=== PATIENT | female | born 1995 | race Caucasian/White ===

== ENCOUNTER 2016-07-11 13:30 | Emergency (ER) | payer OTHER, BC ==
[~2016-07-11 13:30] MED LIST: PREN1CAP7 PO
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
[2016-07-11 15:59] VITALS: BP 122/79; PULSE 86
== END 2016-07-11 17:30 | disposition home or self-care (01) ==
LOC: HOBED 13:30
DX: O26.892 Other specified pregnancy related conditions, second trimester (principal); R10.9 Unspecified abdominal pain; V49.49XA Driver injured in collision with other motor vehicles in traffic accident, initial encounter; Y92.411 Interstate highway as the place of occurrence of the external cause
CPT/HCPCS: 76816; 76819

== ENCOUNTER 2016-10-07 11:52 | Emergency (ER) | payer BC, OTHER ==
[2016-10-07 13:50] VITALS: BP 125/75; PULSE 77; RESP 18; TEMP 98
--- NOTE | 2016-10-07 14:43 | PD ---
HPI Chief Complaint lost mucus plug hives on arm Date Seen: Oct 07, 2016 Travel History International Travel<30 Days: No Contact w/Intl Traveler<30Days: No Known Affected Area: No History of Present Illness HPI 20 yo @ 40 weeks. care with [facility]. Uncomplicated . Patient states she noted some mucus this morning. Denies contractions, VB. +FM. She also noted hives on her left arm and cheek. She denies eating anything this am. Denies any contact with lotion, detergent. No SOB, CP, N/V. Otherwise asymptomatic. History Past Medical History Medical History: Denies Significant Hx Past Surgical History Surgical History: No Previous Surgery Family History Family History: Negative Social History Alcohol Use: No Tobacco Use: No Substance Abuse: No Allergies-Medications (Allergen,Severity, Reaction): Coded Allergies: No Known Allergies (Unverified , 10/05/16) Home Meds No Active Prescriptions or Reported Meds Review of Systems General / Constitutional: No: Fever, Chills Eyes: No: Blurred Vision, Visual changes HENT: No: Headaches, Lightheadedness Cardiovascular: No: Chest Pain or Discomfort, Palpitations Respiratory: No: Cough, Short of Breath, Wheezing Gastrointestinal: No: Nausea, Vomiting, Diarrhea, Abdominal Pain, Loss of Appetite Genitourinary: Discharge (mucus ), No: Urgency, Frequency, Dysuria, Pelvic Pain, Vaginal Bleeding Musculoskeletal: No: Limited ROM, Weakness, Cramping, Edema Skin: Lesions (hives on arm and cheek) Neurologic: No: Weakness, Syncope Hematologic/Lymphatic: No Easy Bruising, No Lymph Node Enlargement Physical Exam Vital Signs Date Time Temp Pulse Resp B/P Pulse Ox O2 Delivery O2 Flow Rate FiO2 10/07/16 13:50 98.0 77 18 125/75 Narrative GENERAL: Well-nourished, well-developed patient. SKIN: Warm and dry. Red welts on left arm and 3 on face HEAD: Normocephalic and atraumatic. EYES: No scleral icterus. No injection or drainage. ENT: No nasal drainage noted. Mucous membranes pink. Airway patent. NECK: Supple, trachea midline. No JVD. CARDIOVASCULAR: Regular rate RESPIRATORY: No accessory muscle use. ABDOMEN/GI: Abdomen soft, non-tender, no rebound, no guarding Gravid GENT: AmniSure NEG TOCO Uterine Contractions: [-] FHT's: Category: I Baseline: 120 Reactive: +accelerations Variability:mod Decels: [-] EXTREMITIES: No cyanosis or edema. No lesions NEUROLOGICAL: Awake and alert. Motor and sensory grossly within normal limits. Normal speech. Data Data Vital Signs Reviewed: Yes MDM Interpretation(s) AmniSure NEG Narrative Course / MDM 40 weeks No labor/contractions AmniSure NEG CAT I FHT A few hives of unknown origin. No associated symptoms Plan D/c home Labor precautions Hives stable, no associated symptoms. Precautions for return to ER if progress or respiratory symptoms Trial of Benadryl Has KASIA in 2 days Diagnosis Diagnosis: Primary Impression: Amniotic cavity/membrane problem suspected but not found Additional Impressions: 40 weeks gestation of Hives Disposition: 01 DISCHARGE HOME Scripts No Active Prescriptions or Reported Meds Patient Instructions: General Instructions, Early Labor Signs (ED), Having Your Baby: The Labor Process (GEN), Movement (ED), at 39 to 40 Weeks (ED) Departure Forms: Tests/Procedures Onelia Smith MD Oct 07, 2016 14:43
== END 2016-10-07 14:10 | disposition home or self-care (01) ==
LOC: HOBED 11:52
DX: O26.93 Pregnancy related conditions, unspecified, third trimester (principal); N89.8 Other specified noninflammatory disorders of vagina; L50.9 Urticaria, unspecified; Z3A.40 40 weeks gestation of pregnancy
CPT/HCPCS: 59025; 84112

== ENCOUNTER 2016-10-09 22:29 | Emergency (ER) | payer BC, OTHER ==
--- NOTE | 2016-10-09 23:27 | PD ---
HPI Chief Complaint contractions Date Seen: Oct 09, 2016 Travel History International Travel<30 Days: No Contact w/Intl Traveler<30Days: No History of Present Illness HPI 20 yo @ 40w3d. care with [facility]. Patient presents with c/o contractions about every 5min. She was seen in the office last week and her SVE was 2cm. She denies any VB, LOF. +FM. She was seen in the [facility] a few days ago and had some hives on her arm and face. No further symptoms and hives resolved. History Past Medical History Medical History: Denies Significant Hx Obstetric History Obstetric History Past Surgical History Surgical History: No Previous Surgery Family History Family History: Negative Social History Alcohol Use: No Tobacco Use: No Substance Abuse: No Allergies-Medications (Allergen,Severity, Reaction): Coded Allergies: No Known Allergies (Unverified , 10/05/16) Home Meds No Active Prescriptions or Reported Meds Review of Systems General / Constitutional: No: Fever, Chills HENT: No: Headaches, Lightheadedness Cardiovascular: No: Chest Pain or Discomfort, Palpitations Respiratory: No: Cough, Short of Breath Gastrointestinal: Abdominal Pain (contractions), No: Nausea, Vomiting, Diarrhea Genitourinary: No: Urgency, Frequency, Discharge, Vaginal Bleeding Musculoskeletal: No: Limited ROM Skin: No Rash (resolved hives), Itching, Lesions (resolved hives) Neurologic: No: Dizziness, Focal Abnormalities Physical Exam Narrative GENERAL: Well-nourished, well-developed patient. NAD SKIN: Warm and dry. HEAD: Normocephalic and atraumatic. EYES: No scleral icterus. No injection or drainage. ENT: No nasal drainage noted. Mucous membranes pink. Airway patent. NECK: , trachea midline. No JVD. CARDIOVASCULAR: Regular rate RESPIRATORY: No accessory muscle use. ABDOMEN/GI: Abdomen soft, non-tender, no rebound, no guarding Gravid GENITOURINARY: External Genitalia: intact and normal in appearance BUS glands: [-] SVE: 2/75/-3 intact, vtx TOCO: irregular UC q 5-7 min FHT's: Category: I EXTREMITIES: No cyanosis or edema. BACK: Nontender without obvious deformity. NEUROLOGICAL: Awake and alert. Motor and sensory grossly within normal limits. Normal gait. Normal speech. MDM Narrative Course / MDM 40 weeks CAT I FHT No cervical change from prior exams False labor Plan d/c home Labor precautions reviewed She has KASIA tomorrow Vistaril for rest offered Diagnosis Diagnosis: Primary Impression: False labor after 37 weeks of gestation without delivery Additional Impression: 40 weeks gestation of Disposition: 01 DISCHARGE HOME Condition: Good Scripts No Active Prescriptions or Reported Meds Onelia Smith MD Oct 09, 2016 23:27
[2016-10-10] MEDS ORDERED: PRENTAB44 (21:09)
== END 2016-10-10 00:10 | disposition home or self-care (01) ==
LOC: HOBED 22:29
DX: O47.1 False labor at or after 37 completed weeks of gestation (principal); Z3A.40 40 weeks gestation of pregnancy
CPT/HCPCS: 59025

== ENCOUNTER 2016-10-10 20:42 | Inpatient (IN) | payer BC ==
[~2016-10-10] VITALS: Ht 157.5 cm; Wt 69.9 kg
[2016-10-10] MEDS ORDERED: PRENTAB44 (21:09)
--- NOTE | 2016-10-10 21:11 | PD ---
HPI Chief Complaint Contractions all day Date Seen: Oct 10, 2016 Time Seen: 21:07 Travel History International Travel<30 Days: No Contact w/Intl Traveler<30Days: No Known Affected Area: No History of Present Illness HPI 20-year-old who is at 40 weeks and 3 days comes in tonight complaining of contractions. Patient was seen yesterday and the day before with contractions, cervix was 3 cm in the office this morning. Patient states the contractions have been present all day with worsening in the past 2-3 hours. Denies vaginal bleeding or vaginal discharge. She is group B strep negative Para: 0 : 2 History Past Medical History Medical History: Denies Significant Hx Past Surgical History Surgical History: No Previous Surgery Family History Family History: Negative Social History Alcohol Use: No Tobacco Use: No Substance Abuse: No Allergies-Medications (Allergen,Severity, Reaction): Coded Allergies: No Known Allergies (Unverified , 10/10/16) Home Meds No Active Prescriptions or Reported Meds Review of Systems Except as stated in HPI: all other systems reviewed are Neg Physical Exam Narrative GENERAL: Well-nourished, well-developed patient. SKIN: Warm and dry. HEAD: Normocephalic and atraumatic. EYES: No scleral icterus. No injection or drainage. ENT: No nasal drainage noted. Mucous membranes pink. Airway patent. NECK: Supple, trachea midline. No JVD. CARDIOVASCULAR: Regular rate and rhythm without murmurs, gallops, or rubs. RESPIRATORY: Breath sounds equal bilaterally. No accessory muscle use. BREASTS: Bilateral exam showed no masses , no retractions, no nipple discharge. ABDOMEN/GI: Abdomen soft, non-tender, bowel sounds present, no rebound, no guarding Gravid to [38-] weeks size EFW 7-1/2 Fundal Height: [-] GENITOURINARY: External Genitalia: intact and normal in appearance BUS glands: [-Normal] Cervix: [Mid position-] Dilatation: [-3-4] Effacement: [80-] Station: [-2-] Presentation: [Vertex-] Membranes: [intact] Uterine Contractions: [-Every 5] FHT's: Category: [-1] Baseline: [-140] Reactive: [Moderate-] Variability: [Moderate-] Decels: [-Absent] EXTREMITIES: No cyanosis or edema. BACK: Nontender without obvious deformity. No CVA tenderness. NEUROLOGICAL: Awake and alert. Motor and sensory grossly within normal limits. Five out of 5 muscle strength in all muscle groups. Normal speech. Data Data Vital Signs Reviewed: Yes MDM Medical Record Reviewed: Yes Plan 20-year-old who is at 40-41 weeks gestation who is in early labor Group B strep negative Will admit to labor delivery Diagnosis Diagnosis: Primary Impression: 40 weeks gestation of Additional Impressions: Intact amniotic membranes Intact amniotic membranes during in third trimester Irregular uterine contractions Scripts No Active Prescriptions or Reported Meds Maria Knox MD Oct 10, 2016 21:11
[2016-10-10] MEDS ORDERED: LACTATED RINGER'S 1000 ML INJ 1,000 ML IV PRN (21:21)
[2016-10-10] MEDS ORDERED: LIDOCAINE HCL 1% 50 ML VIAL I-DERMAL PRN (21:30)
[2016-10-10] MEDS ORDERED: ONDANSETRON HCL 4 MG/2 ML VIAL IV PRN (21:30)
[2016-10-10] MEDS ORDERED: OXYTOCIN 30 UNITS-500ML PREMIX 500 ML IV ONE (21:30)
[2016-10-10] MEDS ORDERED: CITRIC ACID-SODIUM CITRATE LIQ 30 ML UDC PO SCH (21:30)
[2016-10-10] MEDS ORDERED: LIDOCAINE HCL 1% 50 ML VIAL INFIL PRN (21:30)
[2016-10-10] MEDS ORDERED: SODIUM CHLORID 0.9% 500 ML INJ 500 ML IV PRN (21:30)
[2016-10-10] MEDS ORDERED: MINERAL OIL 10 ML VIAL TOPICAL PRN (21:30)
[2016-10-10] MEDS ORDERED: SODIUM CHLOR 0.9% 1000 ML INJ 1,000 ML IV PRN (21:41)
[2016-10-10] MEDS: LACTATED RINGER'S 1000 ML INJ 1,000 ML IV SCH (21:45)
[2016-10-10 22:31] LABS: BACTERIA, URINE RARE /hpf; BLOOD, URINE NEG (NEG); COMMENT (UR) CULT NOT INDICATED; CULTURE IF INDICATED CULT NOT INDICATED; GLUCOSE,URINE NEG (NEG); KETONE, URINE NEG (NEG); NITRITE,URINE NEG (NEG); PH, URINE 6.5 (5.0-8.5); SQUAMOUS EPITHELIAL CELL URINE <1 /hpf (0-5); URINE COLOR YELLOW (YELLW/STRAW)
[2016-10-10 22:34] LABS: AUTOMATED NEUTROPHIL # 12.1 TH/MM3 (1.8-7.7); BASOPHIL % 0.2 % (0.0-2.0); EOSINOPHIL # 0.2 TH/MM3 (0-0.4); EOSINOPHIL % 1.6 % (0.0-4.0); HEMO FLAGS DIFF FINAL; LYMPH % 8.6 % (9.0-44.0); LYMPHOCYTE # 1.2 TH/MM3 (1.0-4.8); MEAN CELL VOLUME 92.9 FL (80.0-100.0); MEAN CORPUSCULAR HEMOGLOBIN 31.1 PG (27.0-34.0); MEAN CORPUSCULAR HGB CONC 33.5 % (32.0-36.0); MONO % 4.7 % (0.0-8.0); NEUT % 84.9 % (16.0-70.0); PLATELET COUNT 232 TH/MM3 (150-450); RED BLOOD COUNT 4.09 MIL/MM3 (4.00-5.30); RED CELL DISTRIBUTION WIDTH 12.9 % (11.6-17.2); WHITE BLOOD COUNT 14.2 TH/MM3 (4.0-11.0)
[2016-10-10 23:28] VITALS: RESP 18
--- NOTE | 2016-10-10 23:39 | HHI.HP ---
History & Physical H&P HPI HPI Chief Complaint Contractions all day Date Seen: Oct 10, 2016 Time Seen: 21:07 Travel History International Travel<30 Days: No Contact w/Intl Traveler<30Days: No Known Affected Area: No History of Present Illness HPI 20-year-old who is at 40 weeks and 3 days comes in tonight complaining of contractions. Patient was seen yesterday and the day before with contractions, cervix was 3 cm in the office this morning. Patient states the contractions have been present all day with worsening in the past 2-3 hours. Denies vaginal bleeding or vaginal discharge. She is group B strep negative Para: 0 : 2 History (Limited) History Past Medical History Medical History: Denies Significant Hx Past Surgical History Surgical History: No Previous Surgery Family History Family History: Negative Social History Alcohol Use: No Tobacco Use: No Substance Abuse: No Allergies-Medications Allergies-Medications (Allergen,Severity, Reaction): Coded Allergies: No Known Allergies (Unverified , 10/10/16) Home Meds No Active Prescriptions or Reported Meds ROS Review of Systems Except as stated in HPI: all other systems reviewed are Neg Physical Exam Physical Exam Narrative GENERAL: Well-nourished, well-developed patient. SKIN: Warm and dry. HEAD: Normocephalic and atraumatic. EYES: No scleral icterus. No injection or drainage. ENT: No nasal drainage noted. Mucous membranes pink. Airway patent. NECK: Supple, trachea midline. No JVD. CARDIOVASCULAR: Regular rate and rhythm without murmurs, gallops, or rubs. RESPIRATORY: Breath sounds equal bilaterally. No accessory muscle use. BREASTS: Bilateral exam showed no masses , no retractions, no nipple discharge. ABDOMEN/GI: Abdomen soft, non-tender, bowel sounds present, no rebound, no guarding Gravid to [38-] weeks size EFW 7-1/2 Fundal Height: [-] GENITOURINARY: External Genitalia: intact and normal in appearance BUS glands: [-Normal] Cervix: [Mid position-] Dilatation: [-3-4] Effacement: [80-] Station: [-2-] Presentation: [Vertex-] Membranes: [intact] Uterine Contractions: [-Every 5] FHT's: Category: [-1] Baseline: [-140] Reactive: [Moderate-] Variability: [Moderate-] Decels: [-Absent] EXTREMITIES: No cyanosis or edema. BACK: Nontender without obvious deformity. No CVA tenderness. NEUROLOGICAL: Awake and alert. Motor and sensory grossly within normal limits. Five out of 5 muscle strength in all muscle groups. Normal speech. Data Data Data Vital Signs Reviewed: Yes MDM MDM Medical Record Reviewed: Yes Plan 20-year-old who is at 40-41 weeks gestation who is in early labor Group B strep negative Will admit to labor delivery Diagnosis Diagnosis: Primary Impression: 40 weeks gestation of Additional Impressions: Intact amniotic membranes Intact amniotic membranes during in third trimester Irregular uterine contractions Maria Knox MD Oct 10, 2016 23:39
[2016-10-11] VITALS (136 sets, daily range): BP systolic 117–166; BP diastolic 58–103; PULSE 44–141; RESP 16–18; TEMP 97.5–98.8
[2016-10-11] MEDS: LACTATED RINGER'S 1000 ML INJ 1,000 ML IV SCH (03:05)
[2016-10-11] MEDS ORDERED: OXYTOCIN 30 UNITS-500ML PREMIX 500 ML IV SCH ×3 (08:00→10:45)
--- NOTE | 2016-10-11 08:32 | PD.LABORPN ---
Subjective Subjective 20YO at 40/5 weeks 6-7 cm/80% and -2 station with AROM at 0820. Category 1 tracing. Objective Vital Signs Vital Signs Date Time Temp Pulse Resp B/P Pulse Ox O2 Delivery O2 Flow Rate FiO2 10/11/16 07:25 93 18/17 07:20 86 18/17 07:15 82 18/17 07:15 98.1 10/11/16 07:13 92 128/80 1817 07:10 91 10/11/16 07:05 100 17 06:55 99 10/11/16 06:50 78 18/17 06:45 83 10/11/17 06:40 73 10/11/17 06:35 69 10/11/17 06:30 64 10/11/ 06:25 99 10/11/17 06:20 69 10/11/17 06:19 18 18/ 06:15 68 10/11/ 06:10 68 10/11/16 06:05 72 10/11/16 06:00 92 10/11/17 05:40 83 18/17 05:35 91 10/11/17 05:30 92 10/11/17 05:25 76 /18/17 05:20 67 /18/17 05:15 67 /18/17 05:10 69 18/17 05:05 73 18/17 05:00 66 18/17 04:55 77 /18/17 04:50 70 /18/17 04:45 80 /18/17 04:40 81 18/17 04:35 70 /18/17 04:30 76 /18/17 04:25 68 /18/17 04:20 71 /18/17 04:15 18 /18/17 04:15 69 /18/17 04:10 70 /18/17 04:05 80 /18/17 04:00 80 7/18/17 03:55 76 7/18/17 03:50 78 /18/17 03:45 71 7/18/17 03:40 75 /18/17 03:35 100 /18/17 03:30 106 /18/17 03:25 84 7/18/17 03:20 83 10/11/16 03:15 81 10/11/16 03:10 82 10/11/16 03:00 72 10/11/16 02:58 98.4 79 18 141/85 10/11/16 02:55 73 10/11/16 02:50 89 10/11/16 02:45 67 10/11/16 01:20 18 10/11/16 00:30 97.5 10/11/16 00:27 18 Objective Pelvic Exam: Cervix: [open] Dilatation: [6-7] Effacement: [80] Station: [-1] Presentation: [vertex] Membranes: [AROM at 0820 hours with clear fluid] Uterine Contractions: [2-3 mins] FHT's: Category: [1] Baseline: [140s] Reactive: [yes] Variability: [moderate] Decels: [0] Assessment/Plan Assessment and Plan 20YO at 40/5 weeks is 6-7 cm/80% and -2 station on cervical exam with AROM at 0820. Reassuring status with reactive category 1 tracing, baseline in 140s, no decels. - Expectant management - Epidural/pain control PRN - Low dose oxytocin Cal Desir MD R1 Oct 11, 2016 08:32
[2016-10-11 09:50] LABS: RAPID PLASMA REAGIN SCREEN NON-REACTIVE (NON-REACTVE)
[2016-10-11] MEDS ORDERED: ePHEDrine/NS 25 MG/5 ML SYR ONE (10:45)
[2016-10-11] MEDS ORDERED: fentaNYL 2MCG-BUPIV 0.125% INJ 100 ML ONE (10:45)
--- NOTE | 2016-10-11 10:55 | PD.LABORPN ---
Subjective Subjective 20 YO at 40/5 weeks at 7/90/0 and vertex with labor progressing. A few isolated variable decels but have resolved with repositioning with reassuring FHT at this time. IV Fentanyl started. Pt with emesisx1. Objective Vital Signs Vital Signs Date Time Temp Pulse Resp B/P Pulse Ox O2 Delivery O2 Flow Rate FiO2 10/11/16 10:10 85 18/17 10:05 83 18/17 10:02 86 120/62 17 10:00 87 18/17 09:40 100 18/17 09:39 98.7 10/11/ 09:35 93 18/17 09:30 89 141/83 10/11/17 09:30 79 10/11/ 09:25 97 10/11/ 09:20 95 18/17 09:15 84 18/ 09:10 44 10/11/ 09:05 104 10/11/ 09:00 93 130/88 10/11/16 09:00 94 10/11/16 08:55 104 18/17 08:50 96 18/17 08:45 102 18/17 08:40 102 18/17 08:36 98 135/89 18/17 08:35 103 18/17 08:30 103 18/17 08:25 109 18/17 08:20 112 18/17 08:15 118 18/17 08:10 84 18/ 08:05 76 10/11/ 08:00 72 18/ 07:55 74 18/17 07:50 73 18/17 07:45 79 18/17 07:40 77 18/17 07:35 84 18/17 07:30 91 18/17 07:25 93 18/17 07:20 86 18/17 07:15 82 18/17 07:15 98.1 18/17 07:13 92 128/80 18/17 07:10 91 18/17 07:05 100 18/17 06:55 99 18/17 06:50 78 18/17 06:45 83 7/18/17 06:40 73 7/18 06:35 69 1817 06:30 64 1817 06:25 99 10/11/16 06:20 69 17 06:19 18 10/11/16 06:15 68 1817 06:10 68 10/11/16 06:05 72 10/11/16 06:00 92 10/11/16 05:40 83 10/11/16 05:35 91 10/11/16 05:30 92 10/11/16 05:25 76 10/11/16 05:20 67 10/11/16 05:15 67 10/11/16 05:10 69 10/11/16 05:05 73 10/11/16 05:00 66 10/11/16 04:55 77 10/11/16 04:50 70 10/11/16 04:45 80 10/11/16 04:40 81 10/11/16 04:35 70 10/11/16 04:30 76 10/11/16 04:25 68 10/11/16 04:20 71 17 04:15 18 10/11/16 04:15 69 10/11/16 04:10 70 10/11/16 04:05 80 10/11/16 04:00 80 10/11/16 03:55 76 10/11/16 03:50 78 18 03:45 71 1817 03:40 75 1817 03:35 100 10/11/16 03:30 106 10/11/16 03:25 84 10/11/16 03:20 83 10/11/16 03:15 81 10/11/16 03:10 82 10/11/16 03:00 72 10/11/16 02:58 98.4 79 18 141/85 10/11/16 02:55 73 10/11/16 02:50 89 10/11/16 02:45 67 Objective Pelvic Exam: Cervix: open Dilatation: 7 Effacement: 90 Station: 0 Presentation: vertex Membranes: ruptured Uterine Contractions: 2-3 min--difficult to assess with pt on her side; IUPC placed FHT's: Category: 1 Baseline: 130 Reactive: yes Variability: moderate Decels: a few isolated variable decels noted, but resolved upon repositioning Assessment/Plan Assessment and Plan 20 YO at 40/5 weeks at 7/90/0 and vertex with labor progressing. A few isolated variable decels but have resolved with repositioning with reassuring FHT - Increased pitocin to 2-2-30 at 1035 hours - Inserted IUPC Cal Desir MD R1 Oct 11, 2016 10:55
--- NOTE | 2016-10-11 12:41 | PD.LABORPN ---
Subjective Subjective Patient comfortable with epidural, feeling pressure Objective Vital Signs Vital Signs Date Time Temp Pulse Resp B/P Pulse Ox O2 Delivery O2 Flow Rate FiO2 10/11/16 12:31 111 153/88 718/17 12:10 80 133/73 718/17 12:05 91 142/83 718/17 12:00 74 130/68 7/18/17 11:55 78 131/65 7/18/17 11:50 91 145/82 718/17 11:45 78 131/73 718/17 11:40 87 137/75 718/17 11:35 100 133/80 718/17 11:30 96 18/17 11:30 97 132/79 7/18/17 11:25 95 18/17 11:25 92 134/78 718/17 11:20 85 135/75 18/17 11:20 99 18/17 11:15 91 18/17 11:15 79 127/71 718/17 11:10 138/78 18/17 11:10 93 18/17 11:10 91 18/17 11:05 88 18/17 11:05 98 18/17 11:05 145/83 7/18/17 11:00 97 160/96 18/17 10:55 101 /18/17 10:51 109 141/82 7/18/17 10:50 109 /18/17 10:50 104 153/93 7/18/17 10:30 93 145/93 7/18/17 10:30 85 7/18/17 10:25 93 7/18/17 10:20 86 7/18/17 10:15 83 7/18/17 10:10 85 7/18/17 10:05 83 7/18/17 10:02 86 120/62 7/18/17 10:00 87 7/18/17 09:40 100 7/18/17 09:39 98.7 7/18/17 09:35 93 7/18/17 09:30 89 141/83 7/18/17 09:30 79 7/18/17 09:25 97 7/18/17 09:20 95 18/17 09:15 84 7/18/17 09:10 44 7/18/17 09:05 104 7/18/17 09:00 93 130/88 7/18/17 09:00 94 7/18/17 08:55 104 7/18/17 08:50 96 7/18/17 08:45 102 7/18/17 08:40 102 7/18/17 08:36 98 135/89 7/18/17 08:35 103 7/18/17 08:30 103 7/18/17 08:25 109 7/18/17 08:20 112 7/18/17 08:15 118 7/18/17 08:10 84 7/18/17 08:05 76 7/18/17 08:00 72 7/18/17 07:55 74 7/18/17 07:50 73 7/18/17 07:45 79 7/18/17 07:40 77 7/18/17 07:35 84 7/18/17 07:30 91 7/18/17 07:25 93 7/18/17 07:20 86 7/18/17 07:15 82 7/18/17 07:15 98.1 7/18/17 07:13 92 128/80 7/18/17 07:10 91 7/18/17 07:05 100 7/18/17 06:55 99 7/18/17 06:50 78 7/18/17 06:45 83 7/18/17 06:40 73 7/18/17 06:35 69 7/18/17 06:30 64 7/18/17 06:25 99 7/18/17 06:20 69 7/18/17 06:19 18 7/18/17 06:15 68 7/18/17 06:10 68 7/18/17 06:05 72 7/18/17 06:00 92 7/18/17 05:40 83 7/18/17 05:35 91 7/18/17 05:30 92 7/18/17 05:25 76 7/18/17 05:20 67 7/18/17 05:15 67 7/18/17 05:10 69 7/18/17 05:05 73 7/18/17 05:00 66 7/18/17 04:55 77 7/18/17 04:50 70 7/18/17 04:45 80 7/18/17 04:40 81 Objective Pelvic Exam: Dilatation: complete Effacement: complete Station:+1 Presentation:cephalic Membranes: intact Uterine Contractions: q 1-2 min FHT's: Category: [1] Baseline: [120s] Variability: [present] Decels: no repetitive decels Assessment/Plan Assessment and Plan A/P: 20y/o 1. IUP at 40.5 2. labor: continue to augment, anticipate 3. GBS neg 4. FHR overall reassuring, continue EFM Madeleine Erwin MD Oct 11, 2016 12:41
[2016-10-11] MEDS ORDERED: MISOPROSTOL 200 MCG TAB ONE (12:47)
[2016-10-11] MEDS ORDERED: IBUPROFEN 600 MG TAB PO PRN (14:30)
[2016-10-11] MEDS ORDERED: SODIUM CHLORIDE 0.9% FLUSH 10 ML FLUSH IV FLUSH PRN (14:30)
[2016-10-11] MEDS ORDERED: WITCH HAZEL 50%/GLYCERIN 12.5% 40 PAD JAR TOPICAL PRN (14:30)
[2016-10-11] MEDS ORDERED: ALUMINUM/MAGNESIUM/SIMETH 30 ML CUP PO PRN (14:30)
[2016-10-11] MEDS ORDERED: ZOLPIDEM TARTRATE 5 MG TAB PO PRN (14:30)
[2016-10-11] MEDS ORDERED: BENZOCAINE 20% TOPICAL SPRAY 60 ML CAN TOPICAL PRN (14:30)
[2016-10-11] MEDS ORDERED: ONDANSETRON ODT 4 MG TAB PO PRN (14:30)
[2016-10-11] MEDS ORDERED: DOCUSATE SODIUM 50 MG/SENNA 8.6 MG TAB PO PRN (14:30)
--- NOTE | 2016-10-11 14:34 | PD.OB.DELI ---
Delivery Date: Oct 11, 2016 Anesthesia: Epidural Episiotomy: None Vaginal Delivery: Normal Presentation: Occiput anterior, Vertex Nuchal Cord: x1, Other (nuchal and body) Delayed cord clamping (45 sec): Yes : Male One Minute : 8 Five Minute : 9 Weight: 3030 grams Placenta: Spontaneous delivery, Intact Laceration: Vaginal laceration, 1 deg (perineal 1st degree), 2 deg (vaginal 2nd degree) Repair: Chromic interrupted (3 for vaginal laceration), Chromic running (2) Additional Information 20 YO delivered via at 40/5 weeks following AROM at 0820 hours augmented by Pitocin titrated to 4. Nuchal cord plus cord over bodyx1. Mother pushed well with coaching and baby was delivered crying vigorously. After delayed clamping, cord was cut by family. Placenta delivered within 10 minutes and was intact. Dr Desir delivered the baby supervised by Dr Erwin. Dr Erwin performed laceration repair under local lidocaine anesthesia. Cytotec was administered following delivery. Cal Desir MD R1 Oct 11, 2016 14:34
--- NOTE | 2016-10-11 14:50 | PD.LABORPN ---
Subjective Subjective Attending delivery note Came to room to assess patient with SVE C/C/+1> madanetn labored down with reassuring FHR. Subsequently commenced spontaneous maternal expulsive effors with excellent descent. I was present, scrubbed, and involved in all portions of delivery. The head delivered spontaneously and atraumatically over a well supported perineum; a nuchal cord was reduced and the anterior shoulder delivered atraumatically and spontaneously followed by atraumatic and spontaneous delivery of the remainder of the . Thick meconium was noted with delivery. The was vigorous at delivery and placed on the maternal abdomen. The cord was double clamped and cut after a time delay. The placenta delivered spontaneously and appeared to be intact. Apgars 8/9. A second degree vaginal laceration was noted and repaired by attending with 3-0 chromic after instillation of 1% lidocaine. A superficial R labial laceration and l vaginal wall laceration were repaired. EBL 250cc. and mother are both doing well. Objective Vital Signs Vital Signs Date Time Temp Pulse Resp B/P Pulse Ox O2 Delivery O2 Flow Rate FiO2 10/11/16 14:31 89 118/74 10/11/16 14:30 98.6 10/11/16 14:15 91 137/78 10/11/16 14:00 100 127/75 10/11/16 13:46 119 141/58 10/11/16 13:31 98 166/103 10/11/16 13:15 78 154/88 10/11/16 13:00 89 147/88 10/11/16 12:45 141 141/98 10/11/16 12:31 111 153/88 10/11/16 12:25 92 136/87 10/11/16 12:20 76 136/75 10/11/16 12:15 94 137/82 10/11/16 12:10 80 133/73 10/11/16 12:05 91 142/83 10/11/16 12:00 74 130/68 10/11/16 11:55 78 131/65 10/11/16 11:50 91 145/82 10/11/16 11:45 78 131/73 10/11/16 11:40 87 137/75 10/11/16 11:35 100 133/80 10/11/16 11:30 96 10/11/16 11:30 97 132/79 7/18/17 11:25 95 7/18/17 11:25 92 134/78 7/18/17 11:20 85 135/75 7/18/17 11:20 99 7/18/17 11:15 91 7/18/17 11:15 79 127/71 7/18/17 11:10 138/78 7/18/17 11:10 93 7/18/17 11:10 91 7/18/17 11:05 88 7/18/17 11:05 98 7/18/17 11:05 145/83 7/18/17 11:00 97 160/96 7/18/17 10:55 101 7/18/17 10:51 109 141/82 7/18/17 10:50 109 7/18/17 10:50 104 153/93 7/18/17 10:30 93 145/93 7/18/17 10:30 85 7/18/17 10:25 93 7/18/17 10:20 86 7/18/17 10:15 83 7/18/17 10:10 85 7/18/17 10:05 83 7/18/17 10:02 86 120/62 7/18/17 10:00 87 7/18/17 09:40 100 7/18/17 09:39 98.7 7/18/17 09:35 93 7/18/17 09:30 89 141/83 7/18/17 09:30 79 7/18/17 09:25 97 7/18/17 09:20 95 7/18/17 09:15 84 7/18/17 09:10 44 7/18/17 09:05 104 7/18/17 09:00 93 130/88 7/18/17 09:00 94 7/18/17 08:55 104 7/18/17 08:50 96 7/18/17 08:45 102 7/18/17 08:40 102 7/18/17 08:36 98 135/89 7/18/17 08:35 103 7/18/17 08:30 103 7/18/17 08:25 109 7/18/17 08:20 112 7/18/17 08:15 118 7/18/17 08:10 84 7/18/17 08:05 76 7/18/17 08:00 72 7/18/17 07:55 74 10/11/16 07:50 73 10/11/16 07:45 79 10/11/16 07:40 77 10/11/16 07:35 84 10/11/16 07:30 91 10/11/16 07:25 93 10/11/16 07:20 86 10/11/16 07:15 82 10/11/16 07:15 98.1 10/11/16 07:13 92 128/80 10/11/16 07:10 91 10/11/16 07:05 100 10/11/16 06:55 99 10/11/16 06:50 78 Objective Pelvic Exam: Cervix: [-] Dilatation: [-] Effacement: [-] Station: [-] Presentation: [-] Membranes: [intact or ruptured] Uterine Contractions: [-] FHT's: Category: [-] Baseline: [-] Reactive: [-] Variability: [-] Decels: [-] Madeleine Erwin MD Oct 11, 2016 14:50
[2016-10-11] MEDS ORDERED: MEASLES, MUMPS, RUBELLA VACCINE 0.5 ML VIAL SQ ONE (16:00)
[2016-10-11] MEDS ORDERED: DIPHTH/TETANUS/ACEL PERTUSSIS (BOOSTER) 0.5 ML VIAL/PFS IM ONE (16:00)
[2016-10-11] MEDS ORDERED: MISOPROSTOL 200 MCG TAB RECTAL ONE (16:00)
[2016-10-11] MEDS ORDERED: fentaNYL 2MCG-BUPIV 0.125% 100 ML EPIDURAL SCH (16:30)
[2016-10-11] MEDS ORDERED: NO SYSTEM NARCOTICS PRN (16:30)
[2016-10-11] MEDS ORDERED: DO NOT ADMINISTER ANTICOAGULANTS PRN (16:30)
[2016-10-11] MEDS ORDERED: ePHEDrine/NS 25 MG/5 ML SYR IV PRN (16:30)
[2016-10-11] MEDS: ACETAMINOPHEN 325 MG TAB PO PRN ×2 (17:52→22:55)
[2016-10-11] MEDS ORDERED: SODIUM CHLORIDE 0.9% FLUSH 10 ML FLUSH IV FLUSH SCH (21:00)
[2016-10-12 08:00] VITALS: BP 117/78; PULSE 72; RESP 16; TEMP 97.6
--- NOTE | 2016-10-12 08:18 | HHI.OB ---
Subjective Post Day: 1 Remarks 20 YO delivered via 40/5 weeks and is progressing well on day one. AFVSS. Meeting all goals as appropriate ambulating, PO, pain controlled, voiding and bowel movements, and bleeding less than a period. Exclusively breast-feeding. Patient denies CP, SOB, N/V/D, and DVT pain. Objective Vitals/I&O Vital Signs Date Time Temp Pulse Resp B/P Pulse Ox O2 Delivery O2 Flow Rate FiO2 10/11/16 20:00 98.8 10/11/16 19:30 118/66 10/11/16 19:30 89 18 10/11/16 16:30 98.4 79 16 10/11/16 16:30 117/76 10/11/16 15:30 89 129/80 10/11/16 15:15 89 124/70 10/11/16 15:00 85 136/65 10/11/16 14:45 90 121/70 10/11/16 14:31 89 118/74 10/11/16 14:30 98.6 10/11/16 14:15 91 137/78 10/11/16 14:00 100 127/75 10/11/16 13:46 119 141/58 10/11/16 13:31 98 166/103 10/11/16 13:15 78 154/88 10/11/16 13:00 89 147/88 10/11/16 12:45 141 141/98 10/11/16 12:31 111 153/88 10/11/16 12:25 92 136/87 10/11/16 12:20 76 136/75 10/11/16 12:15 94 137/82 10/11/16 12:10 80 133/73 10/11/16 12:05 91 142/83 10/11/16 12:00 74 130/68 18 11:55 78 131/65 18 11:50 91 145/82 18 11:45 78 131/73 10/11/16 11:40 87 137/75 10/11/16 11:35 100 133/80 10/11/16 11:30 96 10/11/16 11:30 97 132/79 10/11/16 11:25 95 10/11/16 11:25 92 134/78 7/18/17 11:20 85 135/75 7/18/17 11:20 99 7/18/17 11:15 91 7/18/17 11:15 79 127/71 7/18/17 11:10 138/78 7/18/17 11:10 93 7/18/17 11:10 91 718/17 11:05 88 718/17 11:05 98 18/17 11:05 145/83 718/17 11:00 97 160/96 718/17 10:55 101 18/17 10:51 109 141/82 718/17 10:50 109 18/17 10:50 104 153/93 7/18/17 10:30 93 145/93 718/17 10:30 85 718/17 10:25 93 18/17 10:20 86 18/17 10:15 83 718/17 10:10 85 718/17 10:05 83 718/17 10:02 86 120/62 718/17 10:00 87 718/17 09:40 100 7/18/17 09:39 98.7 7/18/17 09:35 93 7/18/17 09:30 89 141/83 718/17 09:30 79 7/18/17 09:25 97 7/18/17 09:20 95 718/17 09:15 84 7/18/17 09:10 44 718/17 09:05 104 718/17 09:00 93 130/88 718/17 09:00 94 18/17 08:55 104 7/18/17 08:50 96 718/17 08:45 102 7/18/17 08:40 102 7/18/17 08:36 98 135/89 7/18/17 08:35 103 7/18/17 08:30 103 7/18/17 08:25 109 7/18/17 08:20 112 7/18/17 08:15 118 7/18/17 08:10 84 Objective Remarks GENERAL: WDWN female lying in bed breast-feeding her baby. CARDIOVASCULAR: RRR without murmur, gallop, or rub. RESPIRATORY: Breath sounds equal bilaterally with no increased work of breathing. No accessory muscle use. ABDOMEN/GI: Abdomen soft, appropriately tender, no guarding or rebound. Fundus: Firm, non-tender at umbilicus. GENITOURINARY: Light to moderate bleeding. EXTREMITIES: No cyanosis or edema, non-tender, without signs of DVT. Medications and IVs Current Medications Medications (Trade) Dose Ordered Sig/Francisco Javier Route Start Time Stop Time Status Last Admin (Lr 1000 ml Inj) 1,000 ml @ 125 mls/hr Q8H IV 10/10/16 21:21 10/11/16 03:05 (fentaNYL INJ) 100 mcg Q1H PRN IV PUSH 10/10/16 21:30 10/11/16 09:53 (Muri-Lube Oil) 10 ml UNSCH PRN TOPICAL 10/10/16 21:30 10/11/16 14:01 (NS Flush) 2 ml BID IV FLUSH 10/11/16 21:00 (NS Flush) 2 ml UNSCH PRN IV FLUSH 10/11/16 14:30 (Tylenol) 650 mg Q4H PRN PO 10/11/16 14:30 10/11/16 22:55 (Motrin) 600 mg Q6H PRN PO 10/11/16 14:30 10/11/16 17:52 (Americaine 20% Top Spr) 1 spray Q4H PRN TOPICAL 10/11/16 14:30 (Tucks Pads) 1 applic QID PRN TOPICAL 10/11/16 14:30 ([place]-Colace) 2 tab Q12H PRN PO 10/11/16 14:30 (Ambien) 5 mg HS PRN PO 10/11/16 14:30 (Mag-Al Plus Susp Liq) 15 ml Q8H PRN PO 10/11/16 14:30 (Zofran Odt) 4 mg Q6H PRN PO 10/11/16 14:30 Miscellaneous Information No systemic narcotics to be given except... UNSCH PRN .XX 10/11/16 16:30 10/12/16 16:29 Miscellaneous Information DO NOT ADMINISTER ANY ANTICOAGUL... UNSCH PRN .XX 10/11/16 16:30 10/12/16 16:29 (ePHEDrine/NS 25 MG/5 ML SYR) 10 mg UNSCH PRN IV 7/18/17 16:30 10/12/16 16:29 Assessment/Plan Assessment and Plan 20-year-old delivered via at 40/5 weeks and is progressing well on PPD 1 - Routine postop care - AFVSS - Motrin PRN pain control - Exclusively breast-feeding - Encourage OOB - Patient considering contraceptive methods - Anticipate discharge 10/[address], MD R1 Oct 12, 2016 08:18
[2016-10-12] MEDS ORDERED: IBUP-232 PO (10:36)
--- NOTE | 2016-10-12 10:36 | HHI.DCPOC ---
Discharge Care Plan Diagnosis: (1) Normal vaginal delivery Report Symptoms to Your Doctor -Temperature above 100.5 degrees -Redness, of incision or excessive or foul smelling drainage -Unusual pain or calf pain -Increased vaginal bleeding -Painful or difficulty urinating -Feelings of extreme sadness or anxiety after 2 weeks Goals to Promote Your Health * To prevent worsening of your condition and complications * To maintain your health at the optimal level Directions to Meet Your Goals Take your medications as prescribed Follow your dietary instruction Follow activity as directed Ensure plenty of rest for recovery Drink fluids for hydration Keep your appointments as scheduled Take your immunizations and boosters as scheduled If your symptoms worsen call your PCP, if no PCP go to Urgent Care Center or Emergency Room Smoking is Dangerous to Your Health. Avoid second hand smoke Call the 24-hour crisis hotline for domestic abuse at Tristian Lopez MD R1 Oct 12, 2016 10:36
== END 2016-10-12 17:09 | disposition home or self-care (01) | DRG 775 ==
LOC: HOBED 20:42 → H2EB 21:18 → H1EA 10-11 16:09
PROVIDERS: ADMIT Obstetrics & Gynecology Obstetrics; ATTEND Obstetrics & Gynecology Obstetrics
PROC: 10E0XZZ Delivery of Products of Conception, External Approach (ICD-10-PCS; principal; 2016-10-11)
PROC: 0KQM0ZZ Repair Perineum Muscle, Open Approach (ICD-10-PCS; 2016-10-11)
PROC: 10907ZC Drainage of Amniotic Fluid, Therapeutic from Products of Conception, Via Natural or Artificial Opening (ICD-10-PCS; 2016-10-11)
PROC: 00HU33Z Insertion of Infusion Device into Spinal Canal, Percutaneous Approach (ICD-10-PCS; 2016-10-11)
PROC: 3E0R3CZ (ICD-10-PCS; 2016-10-11)
DX: O48.0 Post-term pregnancy (principal); O77.0 Labor and delivery complicated by meconium in amniotic fluid; O69.81X0 Labor and delivery complicated by cord around neck, without compression, not applicable or unspecified; O70.1 Second degree perineal laceration during delivery; O76 Abnormality in fetal heart rate and rhythm complicating labor and delivery; Z3A.40 40 weeks gestation of pregnancy; Z37.0 Single live birth
CPT/HCPCS: 81001; 85025; 86592; 86900; 86901; J2405; J2590; J3010; J7120

== ENCOUNTER 2016-11-09 17:36 | Emergency (ER) | payer BC, OTHER ==
[~2016-11-09] VITALS: Ht 157.5 cm; Wt 59.0 kg
[~2016-11-09 17:36] MED LIST changes: +IBUP-232 PO; -PREN1CAP7 PO; +PRENTAB44
[2016-11-09 17:39] VITALS: BP 120/66; PULSE 88; RESP 16; TEMP 98.6; O2SAT 97
[2016-11-09] MEDS ORDERED: PRED20 PO (18:07)
--- NOTE | 2016-11-09 18:17 | PD ---
HPI Chief Complaint: Skin Problem Time Seen by Provider: 18:08 Travel History International Travel<30 days: No Contact w/Intl Traveler<30days: No Traveled to known affect area: No History of Present Illness HPI 21-year-old female presents to the emergency room for evaluation of itchy rash to bilateral upper extremities that has been ongoing for the past 5 weeks. Patient states she was 39 weeks when the rash began. States it is localized to the upper extremities and occasionally will occur in another part of her body. She has been taking Benadryl occasionally without relief in symptoms. She asked her SHR[employer] PIT OPERATOR who was unable to diagnose the rash. She has not followed up with a final inspector and tester. Patient is breast-feeding. No chronic medical conditions or daily medications. Denies any new environmental, food, or medication exposures. PFSH Past Medical History Medical History: Denies Significant Hx Diminished Hearing: No ?: Not Social History Alcohol Use: No Tobacco Use: No Allergies-Medications (Allergen,Severity, Reaction): Coded Allergies: No Known Allergies (Unverified , 11/09/16) Reported Meds & Prescriptions Reported Meds & Active Scripts Active No Active Prescriptions or Reported Medications Review of Systems Except as stated in HPI: all other systems reviewed are Neg Physical Exam Narrative GENERAL: Well-nourished, well-developed female in no acute distress. Afebrile. Ambulatory. SKIN: Focused skin assessment warm/dry. Multiple 1-2 cm erythematous maculopapular annular, raised lesions to bilateral upper extremities. Mild excoriations. HEAD: Normocephalic. EYES: No scleral icterus. No injection or drainage. NECK: Supple, trachea midline. No JVD or lymphadenopathy. CARDIOVASCULAR: Regular rate and rhythm without murmurs, gallops, or rubs. RESPIRATORY: Breath sounds equal bilaterally. No accessory muscle use. PSYCHIATRIC: No delusional thought processes. No hallucinations. Data Data Last Documented VS Vital Signs Date Time Temp Pulse Resp B/P Pulse Ox O2 Delivery O2 Flow Rate FiO2 11/09/16 17:39 98.6 88 16 120/66 97 Room Air MDM Medical Decision Making Medical Screen Exam Complete: Yes Emergency Medical Condition: Yes Medical Record Reviewed: Yes Differential Diagnosis Allergic reaction, idiopathic urticaria, fungal rash Narrative Course 21-year-old female presents to the emergency room for evaluation of itchy rash to her bilateral upper arms for the past 5 weeks. She denies any new environmental, food, or medication exposures. Physical exam reveals multiple 1- 2 cm erythematous maculopapular annular, raised lesions to bilateral upper extremities. History and physical exam are consistent with urticaria. Likely idiopathic. Patient was told to follow-up with a final inspector and tester for diagnosis or return for worsening symptoms. She was discharged with prescription for prednisone. She understands and agrees to plan. Diagnosis Primary Impression: Urticaria Referrals: Primary Care Physician Patient Instructions: General Instructions, Urticaria (ED) Additional Instructions: Rest and drink plenty of fluids. Take prednisone as directed, until gone. Follow up with a primary care physician. Return to emergency room for worsening symptoms, as discussed. Med/Other Pt SpecificInfo: Prescription(s) given Scripts Prednisone 20 Mg Tab40 Mg PO DAILY #10 TAB Ref 0 Take 40 mg (2 tablets) daily for 5 days Prov:Chandu Richard MD 11/09/16 Disposition: 01 DISCHARGE HOME Condition: Stable Puja Hernández Nov 09, 2016 18:17
[2016-11-23] MEDS ORDERED: LEVO13.5 I-UTERINE (13:51)
== END 2016-11-09 18:37 | disposition home or self-care (01) ==
LOC: PHEFT 17:36
DX: O99.73 Diseases of the skin and subcutaneous tissue complicating the puerperium (principal); L50.9 Urticaria, unspecified
CPT/HCPCS: 99283